=== PATIENT | male | born 1965 | race Caucasian/White ===

== ENCOUNTER → 2024-05-24 15:03 | Outpatient (REF) | payer BC, SELFPAY | LOC: HWRCS 15:03 | PROVIDERS: ATTENDING PHYSICIAN Internal Medicine Cardiovascular Disease; FAMILY PHYSICIAN Family Medicine | DX: Z98.890 Other specified postprocedural states (principal); I45.10 Unspecified right bundle-branch block | CPT/HCPCS: 93306 ==